=== PATIENT | male | born 1970 | race Caucasian/White ===

== ENCOUNTER → 2017-01-29 | Outpatient (CLI) | payer OTHER ==
--- NOTE | 2017-01-29 13:40 | XR ---
EXAMINATION TYPE: XR hand complete LT DATE OF EXAM: 01/29/2017 CLINICAL HISTORY: Puncture wound second finger. TECHNIQUE: Frontal, lateral and oblique images of the left hand are obtained. COMPARISON: None. FINDINGS: Overlying bandage material at level of second finger is present overlying distal half of mi ddle and entire distal phalanx. There is no acute fracture/dislocation evident in the left hand. The joint spaces in the left hand appear within normal limits. There is punctate soft tissue foreign body midshaft first middle phalanx dorsal surface presumed from old trauma. IMPRESSION: There is no acute fracture or dislocation in the left hand with particular attention to second finger..
== END | disposition home or self-care (01) ==
LOC: RADXRMAIN 13:03
PROVIDERS: ATTEND Emergency Medicine
DX: S61.241A Puncture wound with foreign body of left index finger without damage to nail, initial encounter (principal)

== ENCOUNTER 2017-04-17 17:15 | Emergency (ER) | payer BC, OTHER ==
[2017-04-17] MEDS ORDERED: KETOROLAC 30 MG/ML 1 ML VIAL IVP STA (17:49)
[2017-04-17] MEDS ORDERED: SODIUM CHLORIDE 0.9% 1,000 ML IV STA (17:49)
--- NOTE | 2017-04-17 17:55 | ED ---
General Adult HPI - General Chief complaint: Urogenital Stated complaint: HEMATURIA Time Seen by Provider: 04/17/17 17:33 Source: patient, RN notes reviewed, old records reviewed Mode of arrival: ambulatory Limitations: no limitations - History of Present Illness Initial comments: 46-year-old male presenting with severe dysuria and hematuria. Patient has increased urinary frequency and urgency. He has severe pain with urination. Urine has been bloody throughout the day today. He was seen by his primary care physician is started on doxycycline for presumed urinary tract infection today. Patient denies nausea or vomiting. He has had subjective fever and chills. Patient has remote history of bladder cancer in 2009. He is followed by urology. He has been cancer free since that time. Denies chest pain or shortness of breath. Denies any change in bowels. - Related Data Home Medications Medication Instructions Recorded Confirmed Cholecalciferol [Vitamin D3] 1,000 unit PO DAILY 04/17/17 04/17/17 Cyanocobalamin (Vitamin B-12) 1,000 mcg PO DAILY 04/17/17 04/17/17 [Vitamin B-12] Doxycycline Hyclate [Vibramycin] 100 mg PO BID 04/17/17 04/17/17 Lisinopril [Zestril] 10 mg PO DAILY 04/17/17 04/17/17 Loratadine [Claritin] 10 mg PO DAILY 04/17/17 04/17/17 Simvastatin 40 mg PO HS 04/17/17 04/17/17 Previous Rx's Medication Instructions Recorded Sulfamethox-Tmp 800-160Mg [Bactrim 1 tab PO Q12HR #28 tab 04/17/17 DS 800-160 mg] Allergies Allergy/AdvReac Type Severity Reaction Status Date / Time codeine Allergy Unknown Verified 04/17/17 17:39 Review of Systems ROS Statement: Those systems with pertinent positive or pertinent negative responses have been documented in the HPI. ROS Other: All systems not noted in ROS Statement are negative. Past Medical History Past Medical History: Cancer, Hyperlipidemia, Hypertension Additional Past Medical History / Comment(s): bladder cancer History of Any Multi-Drug Resistant Organisms: None Reported Additional Past Surgical History / Comment(s): rotator cuff, vasectomy Past Psychological History: No Psychological Hx Reported Smoking Status: Current every day smoker Past Alcohol Use History: None Reported Past Drug Use History: None Reported General Exam Limitations: no limitations General appearance: alert, in distress Head exam: Present: atraumatic, normocephalic Eye exam: Present: normal appearance, PERRL ENT exam: Present: normal exam Neck exam: Present: normal inspection. Absent: tenderness, meningismus Respiratory exam: Present: normal lung sounds bilaterally. Absent: respiratory distress, wheezes Cardiovascular Exam: Present: normal rhythm, tachycardia GI/Abdominal exam: Present: soft. Absent: distended, tenderness exam: Present: normal inspection. Absent: testicular tenderness, scrotal swelling Extremities exam: Present: normal inspection, normal capillary refill. Absent: pedal edema Back exam: Absent: CVA tenderness (R), CVA tenderness (L) Neurological exam: Present: alert, oriented X3, CN II-XII intact. Absent: motor sensory deficit Psychiatric exam: Present: normal affect, normal mood Skin exam: Present: warm, dry, intact. Absent: cyanosis, diaphoretic Course Vital Signs 04/17/17 17:18 Temperature 98.2 F Pulse Rate 114 H Respiratory 20 Rate Blood Pressure 136/76 O2 Sat by Pulse 98 Oximetry Medical Decision Making - Medical Decision Making 46-year-old male presenting with hematuria and dysuria. Patient has minimal urine on bedside ultrasound and bladder scan with only 70 mL of urine. Laboratory studies are obtained, white blood cell count 14.3 which is elevated, stable hemoglobin 15.8, electrolytes and kidney function within normal limits, lactic acid normal urinalysis shows large leukocyte esterase, greater than 182 RBCs greater than 182 WBCs moderate bacteria and 2+ ketones. Infante catheter was inserted, patient receives 2 L of normal saline bolus. Urine culture is obtained. Patient is given 1 g ceftriaxone in the emergency department for presumed hemorrhagic cystitis. CT is obtained which is negative for any acute processes including normal bladder and normal kidneys. Patient is switched to Bactrim, is given a Bactrim starter pack in the emergency department. He will follow-up with his primary care physician and his urologist. He will continue to orally rehydrate. He will return with any development of fever, worsening symptoms, inability to void. - Lab Data Result diagrams: 04/17/17 18:31 04/17/17 18:31 Lab Results 04/17/17 04/17/17 04/17/17 Range/Units 18:31 18:31 18:31 WBC 14.3 H (3.8-10.6) k/uL RBC 4.97 (4.30-5.90) m/uL Hgb 15.8 (13.0-17.5) gm/dL Hct 46.9 (39.0-53.0) % MCV 94.5 (80.0-100.0) fL MCH 31.9 (25.0-35.0) pg MCHC 33.7 (31.0-37.0) g/dL RDW 12.6 (11.5-15.5) % Plt Count 210 (150-450) k/uL Neutrophils % 80 % Lymphocytes % 12 % Monocytes % 7 % Eosinophils % 1 % Basophils % 0 % Neutrophils # 11.4 H (1.3-7.7) k/uL Lymphocytes # 1.7 (1.0-4.8) k/uL Monocytes # 1.0 (0-1.0) k/uL Eosinophils # 0.1 (0-0.7) k/uL Basophils # 0.0 (0-0.2) k/uL PT (9.0-12.0) sec INR (<1.2) APTT (22.0-30.0) sec Sodium 139 (137-145) mmol/L Potassium 5.1 (3.5-5.1) mmol/L Chloride 104 (98-107) mmol/L Carbon Dioxide 21 L (22-30) mmol/L Anion Gap 14 mmol/L BUN 10 (9-20) mg/dL Creatinine 0.81 (0.66-1.25) mg/dL Est GFR (MDRD) Af Amer >60 (>60 ml/min/1.73 sqM) Est GFR (MDRD) Non-Af >60 (>60 ml/min/1.73 sqM) Glucose 106 H (74-99) mg/dL Plasma Lactic Acid Jaswant 0.8 (0.7-2.0) mmol/L Calcium 10.0 (8.4-10.2) mg/dL Total Bilirubin 0.9 (0.2-1.3) mg/dL AST 24 (17-59) U/L ALT 23 (21-72) U/L Alkaline Phosphatase 74 (38-126) U/L Total Protein 7.5 (6.3-8.2) g/dL Albumin 4.7 (3.5-5.0) g/dL Urine Color Urine Appearance (Clear) Urine pH (5.0-8.0) Ur Specific [place] (1.001-1.035) Urine Protein (Negative) Urine Glucose (UA) (Negative) Urine Ketones (Negative) Urine Blood (Negative) Urine Nitrite (Negative) Urine Bilirubin (Negative) Urine Urobilinogen (<2.0) mg/dL Ur Leukocyte Esterase (Negative) Urine RBC (0-5) /hpf Urine WBC (0-5) /hpf Urine WBC Clumps (None) /hpf Urine Bacteria (None) /hpf Urine Mucus (None) /hpf 04/17/17 04/17/17 Range/Units 18:31 18:31 WBC (3.8-10.6) k/uL RBC (4.30-5.90) m/uL Hgb (13.0-17.5) gm/dL Hct (39.0-53.0) % MCV (80.0-100.0) fL MCH (25.0-35.0) pg MCHC (31.0-37.0) g/dL RDW (11.5-15.5) % Plt Count (150-450) k/uL Neutrophils % % Lymphocytes % % Monocytes % % Eosinophils % % Basophils % % Neutrophils # (1.3-7.7) k/uL Lymphocytes # (1.0-4.8) k/uL Monocytes # (0-1.0) k/uL Eosinophils # (0-0.7) k/uL Basophils # (0-0.2) k/uL PT 11.8 (9.0-12.0) sec INR 1.2 H (<1.2) APTT 21.5 L (22.0-30.0) sec Sodium (137-145) mmol/L Potassium (3.5-5.1) mmol/L Chloride (98-107) mmol/L Carbon Dioxide (22-30) mmol/L Anion Gap mmol/L BUN (9-20) mg/dL Creatinine (0.66-1.25) mg/dL Est GFR (MDRD) Af Amer (>60 ml/min/1.73 sqM) Est GFR (MDRD) Non-Af (>60 ml/min/1.73 sqM) Glucose (74-99) mg/dL Plasma Lactic Acid Jaswant (0.7-2.0) mmol/L Calcium (8.4-10.2) mg/dL Total Bilirubin (0.2-1.3) mg/dL AST (17-59) U/L ALT (21-72) U/L Alkaline Phosphatase (38-126) U/L Total Protein (6.3-8.2) g/dL Albumin (3.5-5.0) g/dL Urine Color Red Urine Appearance Turbid (Clear) Urine pH 6.5 (5.0-8.0) Ur Specific [place] 1.017 (1.001-1.035) Urine Protein 2+ H (Negative) Urine Glucose (UA) Negative (Negative) Urine Ketones 2+ H (Negative) Urine Blood Large H (Negative) Urine Nitrite Negative (Negative) Urine Bilirubin Negative (Negative) Urine Urobilinogen <2.0 (<2.0) mg/dL Ur Leukocyte Esterase Large H (Negative) Urine RBC >182 H (0-5) /hpf Urine WBC >182 H (0-5) /hpf Urine WBC Clumps Many H (None) /hpf Urine Bacteria Moderate H (None) /hpf Urine Mucus Moderate H (None) /hpf Disposition Clinical Impression: Hemorrhagic cystitis, UTI (urinary tract infection) Disposition: HOME SELF-CARE Condition: Good Instructions: Urinary Tract Infection in Men (ED) Prescriptions: Sulfamethox-Tmp 800-160Mg [Bactrim DS 800-160 mg] 1 tab PO Q12HR #28 tab Referrals: Bridget Maxwell MD [Primary Care Provider] - 1-2 days Dennis Eaton MD [STAFF PHYSICIAN] - 1-2 days Time of Disposition: 20:07
[2017-04-17] MEDS ORDERED: RX INFO: IV CONTRAST WAS GIVEN 1 EACH MISC MISCELLANE PRN (18:16)
[2017-04-17] MEDS ORDERED: LIDOCAINE URO-JET JELLY 2% 5 ML KIT URETHRAL ONE (18:42)
[2017-04-17 18:52] LABS: INR 1.2 (<1.2); Prothrombin Time 11.8 sec (9.0-12.0)
[2017-04-17 18:54] LABS: ALT 23 U/L (21-72); AST 24 U/L (17-59); Albumin 4.7 g/dL (3.5-5.0); Alkaline Phosphatase 74 U/L (38-126); Anion Gap 14 mmol/L; Blood Urea Nitrogen 10 mg/dL (9-20); Carbon Dioxide 21 mmol/L (22-30); Chloride 104 mmol/L (98-107); Glucose 106 mg/dL (74-99); Sodium 139 mmol/L (137-145); Total Bilirubin 0.9 mg/dL (0.2-1.3); Total Protein 7.5 g/dL (6.3-8.2)
[2017-04-17 18:56] LABS: Potassium 5.1 mmol/L (3.5-5.1)
[2017-04-17 19:09] LABS: Basophils % (A) 0 %; Eosinophils # (A) 0.1 k/uL (0-0.7); Eosinophils % (A) 1 %; HCT 46.9 % (39.0-53.0); HGB 15.8 gm/dL (13.0-17.5); Lymphocytes # (A) 1.7 k/uL (1.0-4.8); Lymphocytes % (A) 12 %; MCH 31.9 pg (25.0-35.0); MCHC 33.7 g/dL (31.0-37.0); MCV 94.5 fL (80.0-100.0); Mean Platelet Volume 7.9; Monocytes % (A) 7 %; Neutrophils # (A) 11.4 k/uL (1.3-7.7); Neutrophils % (A) 80 %; Platelet Count 210 k/uL (150-450); RBC 4.97 m/uL (4.30-5.90); RDW 12.6 % (11.5-15.5); WBC 14.3 k/uL (3.8-10.6)
[2017-04-17 19:13] LABS: Partial Thromboplastin Time 21.5 sec (22.0-30.0)
[2017-04-17 19:20] LABS: Appearance,Urine Turbid (Clear); Bacteria,Urine Moderate /hpf; Bilirubin,Urine Negative (Negative); Blood,Urine Large (Negative); Color,Urine Red; Glucose,Urine (UA) Negative (Negative); Ketones,Urine 2+ (Negative); Leukocyte Esterase,Urine Large (Negative); Mucus,Urine Moderate /hpf; Nitrite,Urine Negative (Negative); PH, Urine 6.5 (5.0-8.0); Protein,Urine 2+ (Negative); RBC,Urine >182 /hpf (0-5); Specific Gravity,Urine 1.017 (1.001-1.035); Urobilinogen,Urine <2.0 mg/dL (<2.0); WBC,Urine >182 /hpf (0-5)
[2017-04-17] MEDS ORDERED: cefTRIAXone IN SWFI 1,000 MG/10 ML SYRINGE IVP STA (19:37)
[2017-04-17] MEDS ORDERED: SODIUM CHLORIDE 0.9% 1,000 ML IV ONE (19:38)
--- NOTE | 2017-04-17 19:46 | CT ---
EXAMINATION TYPE: CT abdomen pelvis w con DATE OF EXAM: 04/17/2017 COMPARISON: NONE HISTORY: History of bladder cancer. Hematuria x 2-[address] DLP: 2114 mGycm Automated exposure control for dose reduction was used. TECHNIQUE: Helical acquisition of images was performed from the lung bases through the pelvis. CONTRAST: Performed without Oral Contrast and with IV Contrast, patient injected with 100 mL of Omnipaque 300. FINDINGS: LUNG BASES: No significant abnormality is appreciated. LIVER/GB: No significant abnormality is appreciated. PANCREAS: No significant abnormality is seen. SPLEEN: No significant abnormality is seen. ADRENALS: No significant abnormality is seen. KIDNEYS: No significant abnormality is seen. FREE AIR: No free air is visualized. RETROPERITONEAL ADENOPATHY: None visualized REPRODUCTIVE ORGANS: No significant abnormality is seen. URINARY TRACT: The upper collecting systems and ureters are unremarkable. The urinary bladder is miles apsed around a Infante catheter which is in place. PELVIC ADENOPATHY: None visualized. OSSEOUS STRUCTURES: No significant abnormality is seen. BOWEL: No significant abnormality is seen. VASCULATURE: Unremarkable. IMPRESSION: NO ACUTE PROCESS; NO CT CORRELATE FOR HEMATURIA.
[2017-04-17] MEDS ORDERED: SULFAMETH-TMP DS STARTER PACK 2 TAB BTL PO STA (19:59)
[2017-04-17 21:04] VITALS: BP 132/69; PULSE 90; RESP 18; TEMP 98.3
== END 2017-04-17 21:03 | disposition home or self-care (01) ==
LOC: EC 17:15
DX: N30.90 Cystitis, unspecified without hematuria (principal); E78.5 Hyperlipidemia, unspecified; I10 Essential (primary) hypertension; F17.200 Nicotine dependence, unspecified, uncomplicated; Z85.51 Personal history of malignant neoplasm of bladder; Z79.899 Other long term (current) drug therapy; Z88.5 Allergy status to narcotic agent
CPT/HCPCS: 51798; 36415; 80053; 83605; 85025; 85610; 85730; 81001; 87086; 74177; 99284; 51702; 96374; 96375; 96361 ×2; J0696; J1885; Q9967; 87077; 87186

== ENCOUNTER 2023-04-18 10:59 | Emergency (ER) | payer OTHER, BC ==
[2023-04-18] MEDS ORDERED: KETOROLAC 15 MG/ML 1 ML VIAL IM STA (11:27)
[2023-04-18] MEDS ORDERED: DIPH,PERTUS(ACELL)TETVAC-LF 0.5 ML VIAL IM ONE (11:31)
--- NOTE | 2023-04-18 11:33 | ED ---
Fall HPI - General Chief Complaint: Fall Stated Complaint: Fall - [facility] Time Seen by Provider: 04/18/23 11:16 Source: patient, RN notes reviewed Mode of arrival: ambulatory - History of Present Illness Initial Comments: Patient is a 52 year old male presentingto the ER with chief complaint of a fall. Patient states he was on a 6 foot ladder working in the ceiling when he went to reach down for a tool and lost his balance. Patient states that he fell and landed on his left side. Patient states he scraped/puncture his left hand on the steel frame in the ceiling. Patient's tetanus vaccination status is unknown. Patient does not remember if he hit his head or not but he does deny loss of consciousness. Patient denies blood thinner use. Patient is reporting extreme left wrist pain radiating to his elbow. Patient is also endorsing left knee and ankle pain. Patient denies any numbness or tingling. Patient denies any other complaints at this time. - Related Data Home Medications Medication Instructions Recorded Confirmed Cholecalciferol [Vitamin D3] 1,000 unit PO DAILY 04/17/17 04/17/17 Cyanocobalamin (Vitamin B-12) 1,000 mcg PO DAILY 04/17/17 04/17/17 [Vitamin B-12] Doxycycline Hyclate [Vibramycin] 100 mg PO BID 04/17/17 04/17/17 Loratadine [Claritin] 10 mg PO DAILY 04/17/17 04/17/17 Simvastatin 40 mg PO HS 04/17/17 04/17/17 lisinopriL [Zestril] 10 mg PO DAILY 04/17/17 04/17/17 Previous Rx's Medication Instructions Recorded Sulfamethox-Tmp 800-160Mg [Bactrim 1 tab PO Q12HR #28 tab 04/17/17 DS 800-160 mg] Allergies Allergy/AdvReac Type Severity Reaction Status Date / Time codeine Allergy Unknown Verified 04/17/17 17:39 Review of Systems ROS Statement: Those systems with pertinent positive or pertinent negative responses have been documented in the HPI. ROS Other: All systems not noted in ROS Statement are negative. Past Medical History Past Medical History: Cancer, Hyperlipidemia, Hypertension Additional Past Medical History / Comment(s): bladder cancer History of Any Multi-Drug Resistant Organisms: None Reported Additional Past Surgical History / Comment(s): rotator cuff, vasectomy Past Psychological History: No Psychological Hx Reported Past Alcohol Use History: None Reported Past Drug Use History: None Reported General Exam Limitations: no limitations General appearance: alert, in no apparent distress Head exam: Present: atraumatic, normocephalic, normal inspection Eye exam: Present: normal appearance, PERRL, EOMI. Absent: scleral icterus, conjunctival injection, periorbital swelling Pupils: Present: normal accommodation Neck exam: Present: normal inspection. Absent: tenderness, meningismus, lymphadenopathy Respiratory exam: Present: normal lung sounds bilaterally. Absent: respiratory distress, wheezes, rales, rhonchi, stridor Cardiovascular Exam: Present: regular rate, normal rhythm, normal heart sounds. Absent: systolic murmur, diastolic murmur, rubs, gallop, clicks Extremities exam: Present: other (Noticeable edema to left wrist over distal radius. 2+ left radial pulse. Sensation intact. Left knee, lateral calf and ankle tender to touch. Full active ROM with pain. 2+ left dorsalis pedis pulse. Sensation intact.) Back exam: Present: normal inspection Neurological exam: Present: alert, oriented X3, CN II-XII intact Psychiatric exam: Present: normal affect, normal mood Skin exam: Present: warm, dry, intact, normal color, other (Multiple abrasions and a minor puncture wound to the palmar left hand. No foreign body present.). Absent: rash Course Vital Signs 04/18/23 11:04 Temperature 98.7 F Pulse Rate 100 Respiratory 20 Rate Blood Pressure 152/78 O2 Sat by Pulse 98 Oximetry Procedures - Orthopedic Splinting/Casting Injury #1 Side: left Upper Extremity Injury Location: wrist Upper Extremity Immobilizer: posterior splint Medical Decision Making - Medical Decision Making Was pt. sent in by a medical professional or institution (, PA, QA AUDITOR, urgent care, hospital, or alf...) When possible be specific @ -No Did you speak to anyone other than the patient for history (EMS, parent, family, police, friend...)? What history was obtained from this source @ -No Did you review nursing and triage notes (agree or disagree)? Why? @ -I reviewed and agree with nursing and triage notes Were old charts reviewed (outside hosp., previous admission, EMS record, old EKG, old radiological studies, urgent care reports/EKG's, alf records)? Report findings @ -No old charts were reviewed Differential Diagnosis (chest pain, altered mental status, abdominal pain women, abdominal pain men, vaginal bleeding, weakness, fever, dyspnea, syncope, headache, dizziness, GI bleed, back pain, seizure, CVA, palpatations, mental health, musculoskeletal)? @ -Differential Musculoskeletal: Muscular strain, contusion, ligament sprain, fracture, arthritis, septic arthritis, bursitis, cellulitis, muscle spasm, nerve compression, DVT, arterial occlusion, herpes zoster, electrolyte abnormality, tumor.... This is not meant to be in all inclusive list EKG interpreted by me (3pts min.). @ -None X-rays interpreted by me (1pt min.). @ -Left wrist x-ray interpreted by me shows a fracture of the distal radius with avulsion of the ulnar styloid. Left knee, ankle, elbow x-rays are negative for acute osseous pathology. CT interpreted by me (1pt min.). @ -CT brain C-spine interpreted by me shows no acute process. U/S interpreted by me (1pt. min.). @ -None done What testing was considered but not performed or refused? (CT, X-rays, U/S, labs)? Why? @ -None What meds were considered but not given or refused? Why? @ -None Did you discuss the management of the patient with other professionals (professionals i.e. , PA, QA AUDITOR, lab, RT, psych nurse, school social worker, photoengraving etcher, teacher, protocol officer, case maker)? Give summary @ -No Was smoking cessation discussed for >3mins.? @ -No Was critical care preformed (if so, how long)? @ -No Were there social determinants of health that impacted care today? How? (Homelessness, low income, unemployed, alcoholism, drug addiction, transportation, low edu. Level, literacy, decrease access to med. care, assisted, rehab)? @ -No Was there de-escalation of care discussed even if they declined (Discuss DNR or withdrawal of care, Hospice)? DNR status @ -No What co-morbidities impacted this encounter? (DM, HTN, Smoking, COPD, CAD, Cancer, CVA, ARF, Chemo, Hep., AIDS, mental health diagnosis, sleep apnea, morbid obesity)? @ -None Was patient admitted / discharged? Hospital course, mention meds given and route, prescriptions, significant lab abnormalities, going to OR and other pertinent info. @ -Discharge. Patient is a 52-year-old male presented ER with chief complaint of a fall. Vitals stable. Left wrist is significantly swollen over radial head. No anatomical snuffbox tenderness. Neurovascularly intact. No other acute neurological findings. Due to patient being unsure if he hit his head CT was performed. CT was negative for acute intracranial process. X-rays of left wrist interpreted by me shows fracture of distal radius and ulnar styloid. X- rays of left elbow and knee, ankle negative for acute process. Patient was placed in a posterior splint and received IV Toradol for pain control. Patient will be given a starter pack of [place] for pain control outpatient. Tetanus updated. I advised patient to follow-up with orthopedics next 1-2 days. Referral given. Return parameters were discussed. Patient will be discharged in stable condition with follow-up to PCP/orthopedics. Patient expressed understanding and agreement with care plan Undiagnosed new problem with uncertain prognosis? @ -No Drug Therapy requiring intensive monitoring for toxicity (Heparin, Nitro, Insulin, Cardizem)? @ -No Were any procedures done? @ -Yes Diagnosis/symptom? @ -Distal radius fracture Acute, or Chronic, or Acute on Chronic? @ -Acute Uncomplicated (without systemic symptoms) or Complicated (systemic symptoms)? @ -Uncomplicated Side effects of treatment? @ -No Exacerbation, Progression, or Severe Exacerbation? @ -No Poses a threat to life or bodily function? How? (Chest pain, [place], [place], pneumonia, PE, COPD, DKA, ARF, appy, cholecystitis, CVA, Diverticulitis, Homicidal, Suicidal, threat to staff... and all critical care pts) @ -No - Radiology Data Radiology results: report reviewed, image reviewed Disposition Clinical Impression: Distal radius fracture, Fracture of ulnar styloid Disposition: HOME SELF-CARE Condition: Stable Instructions (If sedation given, give patient instructions): Fall Prevention (ED) Additional Instructions: Please follow-up with orthopedics in the next 1-2 days. Please return to the ER for any new or worsening symptoms. Is patient prescribed a controlled substance at d/c from ED?: No Referrals: Bridget Maxwell MD [Primary Care Provider] - 1-2 days Maksim Balderas DO [Doctor of Osteopathic Medicine] - 1-2 days Time of Disposition: 13:53
--- NOTE | 2023-04-18 12:37 | XR ---
EXAMINATION TYPE: XR ankle complete LT DATE OF EXAM: 04/18/2023 COMPARISON: None HISTORY: Pain, fall TECHNIQUE: 3 view left ankle FINDINGS: Ankle mortise is intact. No acute fracture or dislocation is evident. Soft tissues are norm al. Joint spaces are preserved. Follow up exams can be performed 7-10 days from acute trauma for continued pain. IMPRESSION: 1. No acute osseous abnormality left ankle
--- NOTE | 2023-04-18 12:42 | XR ---
EXAMINATION TYPE: XR knee complete LT DATE OF EXAM: 04/18/2023 COMPARISON: None HISTORY: Fall from ladder TECHNIQUE: 3 view left knee FINDINGS: No acute fracture or dislocation is evident. Joint spaces are preserved. No joint effusion is evident. Follow up exams can be performed 7-10 days from acute trauma for continued pain. IMPRESSION: 1. No acute osseous abnormality left knee
--- NOTE | 2023-04-18 12:44 | XR ---
EXAMINATION TYPE: XR elbow complete LT DATE OF EXAM: 04/18/2023 COMPARISON: None HISTORY: Injury, pain TECHNIQUE: 3 view left elbow FINDINGS: Radius aligns normally with the humerus. No acute fracture or dislocation is evident. Vickery tion of the anterior posterior fat pad is evident. Follow up exams can be performed 7-10 days from acute trauma and pain. IMPRESSION: 1. No acute osseous abnormalities left elbow
--- NOTE | 2023-04-18 12:45 | XR ---
EXAMINATION TYPE: XR wrist complete LT DATE OF EXAM: 04/18/2023 COMPARISON: 01/29/2017 HISTORY: Fall from ladder TECHNIQUE: 4 view left wrist FINDINGS: There is avulsion of the styloid. There is a transverse fracture of the distal metaphyseal radius. This appears nondisplaced. This may be somewhat comminuted with a longitudinal component evid ent knee lateral projection. Prominent soft tissue swelling over the fracture site. Follow-up exams can be performed for unexplained pain. IMPRESSION: 1. Fracture of the distal metaphyseal radius with avulsion of the ulnar styloid.
--- NOTE | 2023-04-18 13:25 | CT ---
EXAMINATION TYPE: CT brain cspine wo con CT DLP: 1551.8 mGycm, Automated exposure control for dose reduction was used. DATE OF EXAM: 04/18/2023 11:49 AM COMPARISON: None. CLINICAL INDICATION:Male, 52 years old with history of pain; Fall from ladder TECHNIQUE: Brain: Multiple axial CT images of the brain were obtained without IV contrast. Cspine: Axial CT images from the skull base to the inferior aspect of T2 we obtained without intraven ous contrast. Coronal and sagittal reformatted images were also reviewed. FINDINGS: Brain: Extra-axial spaces: No abnormal extra-axial fluid collections. Ventricular system: Within normal limits. Cerebral parenchyma: No increased attenuation to suggest acute intraparenchymal hemorrhage. The gra y-white matter interface appears maintained. Mild bilateral frontoparietal cortical atrophy is sugge sted superiorly. White matter unremarkable by CT. Cerebellum: No acute abnormality. Mass effect: No evidence of mass effect or midline shift. Intracranial vasculature: Unremarkable Soft tissues: Several ill-defined subcutaneous nodular densities in the posterior scalp, uncertain if related to contusions or other lesions. Visualized orbits: Orbital contents appear grossly intact. Calvarium/osseous structures: No evidence of calvarial fracture. Paranasal sinuses and mastoid air cells: Scattered mild mucosal thickening. Mastoid air cells are cl ear. Mild nasal septal deviation to the right. MRI is more sensitive for detecting acute processes such as infarct, and may be considered if clinica lly warranted. Cervical spine: Fracture: None seen. Osseous structures, spinal canal/neural foramina: The craniocervical junction appears intact. There a re generally mild degenerative changes throughout the cervical spine. Small disc osteophyte complexes C3-C4 and C6-C7 cause mild spinal canal stenosis and mild to moderate neural foraminal stenoses, darion ears greatest on the right at C5-6. Vertebral alignment: No traumatic malalignment. Preserved normal cervical lordosis. Neck soft tissues: No acute finding.. Other: Lung apices show mild chronic changes without acute infiltrate or pneumothorax. IMPRESSION: CT head: 1. No acute intracranial CT abnormality. 2. Several ill-defined subcutaneous nodular densities in the posterior scalp, uncertain if related t o contusions or other lesions. 3. No calvarial fracture seen. CT cervical spine: 1. No evidence of cervical spine fracture or traumatic malalignment. 2. Mild cervical spondylosis.
[2023-04-18] MEDS: ACET/COD 300 MG/30 MG STARTER PACK 6 TAB BTL PO STA ×2 (14:22→14:45)
[2023-04-18 14:23] VITALS: BP 145/74; PULSE 68; RESP 16; TEMP 98.9
== END 2023-04-18 14:30 | disposition home or self-care (01) ==
LOC: EC 10:59
DX: S52.592A Other fractures of lower end of left radius, initial encounter for closed fracture (principal); S52.612A Displaced fracture of left ulna styloid process, initial encounter for closed fracture; S61.432A Puncture wound without foreign body of left hand, initial encounter; M25.562 Pain in left knee; M25.572 Pain in left ankle and joints of left foot; M79.662 Pain in left lower leg; I10 Essential (primary) hypertension; E78.5 Hyperlipidemia, unspecified; Z23 Encounter for immunization; Z79.899 Other long term (current) drug therapy; Z88.5 Allergy status to narcotic agent; W11.XXXA Fall on and from ladder, initial encounter; W26.8XXA Contact with other sharp object(s), not elsewhere classified, initial encounter
CPT/HCPCS: 73080; 73110; 73562; 73610; 72125; 70450; 90715; 29125; 99284; 96372; 90471; J1885